=== PATIENT | female | born 1985 | race Caucasian/White ===

== ENCOUNTER → 2016-08-20 | Outpatient (CLI) | payer OTHER ==
[2014-11-14 18:00] VITALS: BP 117/73
[~2016-08-20] MED LIST: ACET325T9 PO; CIPR500T94 PO; HYDR-971 PO; IBUP800T19 PO; METR500T PO; PROM25TA10 PO
--- NOTE | 2016-08-20 15:53 | RAD ---
Examination: 2 views of the chest. History: History of cough for one week Comparison: 11/22/2014 Findings: The cardiomediastinal silhouette grossly appears unremarkable. Mild prominent appearing bibasal interstitial lung markings. Cholecystectomy clips are identified. Impression: Mild prominent appearing bibasal interstitial lung markings could be interstitial infiltrates or interstitial changes or bronchitis.
== END | disposition home or self-care (01) ==
LOC: DXRADRC 15:28
PROVIDERS: ATTEND Nurse Practitioner Family
DX: J18.9 Pneumonia, unspecified organism (principal); F17.210 Nicotine dependence, cigarettes, uncomplicated
CPT/HCPCS: 71020

== ENCOUNTER 2018-11-05 22:45 | Emergency (ER) | payer BC, OTHER ==
[~2018-11-05] VITALS: Ht 162.6 cm; Wt 73.9 kg
[~2018-11-05 22:45] MED LIST changes: +HYDR-3165 PO; -HYDR-971 PO
--- NOTE | 2018-11-05 22:54 | ED.ADGEN ---
Past History Past Medical History: GERD, GI Bleed, Migraines, Other Past Medical History Severe endometriosis Past Surgical History: Hysterectomy, Other Smoking: Cigarettes Alcohol Use: None Drug Use: None Adult General Chief Complaint Chief Complaint ".. I ve been vomiting up blood the last 5 days.. I just had a upper and lower GI at [facility] a couple months ago and they did not find anything... Dr. Pat did it...".. " I got that stupid insurance...where I can't go to [facility].. and end up having to be admitted or specialist in [facility]... " [facility] HPI Patient is a 33 year old female who presents with above hx and complaints vomiting blood 5 days. States previous evaluation and Lionel by Dr. Pat proximately 2 months ago consisting of an EGD and colonoscopy. No bleeding sites could be found. She states she does still have gastro-esophageal reflux and stomach complaints. No history of coagulopathy. No history immunosuppression. History of travel or specific ill contacts. Patient does continue to smoke. No history of bad food intake. Patient localizes her pain to epigastric area. Patient's had previous hysterectomy due to severe endometr iosis. Patient reportedly in premature menopause because of her severe endometriosis. Patient works as a hairdresser. No history exposure to new or unusual chemicals. Review of Systems Review of Systems Constitutional: Denies fever or chills [] Eyes: Denies change in visual acuity, redness, or eye pain [] HENT: Denies nasal congestion or sore throat [] Respiratory: Denies cough or shortness of breath [] Cardiovascular: No additional information not addressed in [facility] [] GI: Complaints as severe epigastric abdominal pain, nausea, vomiting, bloody stools and vomiting blood for 5 days : Denies dysuria or hematuria [] Musculoskeletal: Denies back pain or joint pain [] Integument: Denies rash or skin lesions [] Neurologic: Denies headache, focal weakness or sensory changes [] Endocrine: Denies polyuria or polydipsia [] All other systems were reviewed and found to be within normal limits, except as documented in this note. Family History Family History Noncontributory Current Medications Current Medications Current Medications Medications (Trade) Dose Ordered Sig/Joy Start Time Stop Time Status Last Admin Dose Admin Acetaminophen (Tylenol) 1,000 mg 1X ONCE 11/06/18 01:45 8/4/19 01:51 DC Famotidine (Pepcid Vial) 20 mg 1X ONCE 11/06/18 01:30 11/06/18 01:42 DC 11/06/18 01:41 20 MG Lactated Ringer's 1,000 ml @ 1,000 mls/hr Q1H 11/05/18 23:30 11/06/18 00:29 DC 11/05/18 23:37 1,000 MLS/HR Ondansetron HCl (Zofran) 8 mg 1X ONCE 11/06/18 01:30 11/06/18 01:42 DC 11/06/18 01:41 8 MG Allergies Allergies Allergies Coded Allergies Type Severity Reaction Last Updated Verified No Known Drug Allergies 06/28/14 No Physical Exam Physical Exam Constitutional: Moderately acute distress, non-toxic appearance. [] HENT: Normocephalic, atraumatic, bilateral external ears normal, oropharynx moist, no oral exudates, nose normal. [] Eyes: PERRLA, EOMI, conjunctiva normal, no discharge. [] Neck: Normal range of motion, no tenderness, supple, no stridor. [] Cardiovascular:Heart rate regular rhythm, no murmur [] Lungs & Thorax: Bilateral breath sounds equal apex with few scattered wheezes auscultation [] Abdomen: Bowel sounds normal, soft, gastric tenderness, no masses, no pulsatile masses. [] Rebound to epigastric. Old surgery scars. Rectal no gross blood noted Skin: Warm, dry, no erythema, no rash. [] Back: No tenderness, no CVA tenderness. [] Extremities: No tenderness, no cyanosis, no clubbing, ROM intact, no edema. [] Has abrasions on index and third finger dorsal. No psoas sign Neurologic: Alert and oriented X 3, normal motor function, normal sensory function, no focal deficits noted. [] Psychologic: Affect anxious, judgement normal, mood depressed. Current Patient Data Vital Signs Vital Signs Date Time Temp Pulse Resp B/P (MAP) Pulse Ox O2 Delivery O2 Flow Rate FiO2 11/05/18 23:11 98.0 71 18 96 Room Air Lab Results Laboratory Tests Test 11/05/18 22:50 11/05/18 23:00 Urine Collection Type Unknown Urine Color Straw Urine Clarity Clear Urine pH 6.0 Urine Specific Bromide 1.010 Urine Protein Neg (NEG-TRACE) Urine Glucose (UA) Neg mg/dL (NEG) Urine Ketones (Stick) Neg mg/dL (NEG) Urine Blood Neg (NEG) Urine Nitrite Neg (NEG) Urine Bilirubin Neg (NEG) Urine Urobilinogen Dipstick 0.2 mg/dL (0.2 mg/dL) Urine Leukocyte Esterase Neg (NEG) Urine RBC 0 /HPF (0-2) Urine WBC Occ /HPF (0-4) Urine Squamous Epithelial Cells Occ /LPF Urine Bacteria 0 /HPF (0-FEW) Urine Test Negative (NEG) Urine Opiates Screen Neg (NEG) Urine Methadone Screen Neg (NEG) Urine Barbiturates Neg (NEG) Urine Phencyclidine Screen Neg (NEG) Urine Amphetamine/Methamphetamine Neg (NEG) Urine Benzodiazepines Screen Neg (NEG) Urine Cocaine Screen Neg (NEG) Urine Cannabinoids Screen Neg (NEG) Urine Ethyl Alcohol Neg (NEG) White Blood Count 12.3 x10^3/uL (4.0-11.0) H Red Blood Count 4.53 x10^6/uL (3.50-5.40) Hemoglobin 13.5 g/dL (12.0-15.5) Hematocrit 40.7 % (36.0-47.0) Mean Corpuscular Volume 90 fL (79-100) Mean Corpuscular Hemoglobin 30 pg (25-35) Mean Corpuscular Hemoglobin Concent 33 g/dL (31-37) Red Cell Distribution Width 13.2 % (11.5-14.5) Platelet Count 254 x10^3/uL (140-400) Neutrophils (%) (Auto) 62 % (31-73) Lymphocytes (%) (Auto) 29 % (24-48) Monocytes (%) (Auto) 6 % (0-9) Eosinophils (%) (Auto) 1 % (0-3) Basophils (%) (Auto) 1 % (0-3) Neutrophils # (Auto) 7.6 x10^3uL (1.8-7.7) Lymphocytes # (Auto) 3.6 x10^3/uL (1.0-4.8) Monocytes # (Auto) 0.8 x10^3/uL (0.0-1.1) Eosinophils # (Auto) 0.1 x10^3/uL (0.0-0.7) Basophils # (Auto) 0.1 x10^3/uL (0.0-0.2) Prothrombin Time 9.9 SEC (9.4-11.4) Prothrombin Time INR 1.0 (0.9-1.1) PTT 27 SEC (23-33) Sodium Level 140 mmol/L (136-145) Potassium Level 3.6 mmol/L (3.5-5.1) Chloride Level 105 mmol/L (98-107) Carbon Dioxide Level 26 mmol/L (21-32) Anion Gap 9 (6-14) Blood Urea Nitrogen 11 mg/dL (7-20) Creatinine 0.6 mg/dL (0.6-1.0) Estimated GFR (Cockcroft-Gault) 115.9 Glucose Level 96 mg/dL (70-99) Calcium Level 8.8 mg/dL (8.5-10.1) Total Bilirubin 0.2 mg/dL (0.2-1.0) Direct Bilirubin < 0.1 mg/dL (0.0-0.2) Aspartate Amino Transferase (AST) 12 U/L (15-37) L Alanine Aminotransferase (ALT) 26 U/L (14-59) Alkaline Phosphatase 74 U/L (46-116) Total Protein 7.3 g/dL (6.4-8.2) Albumin 4.1 g/dL (3.4-5.0) Amylase Level 40 U/L (25-115) Lipase 201 U/L (73-393) EKG EKG [] Radiology/Procedures Radiology/Procedures My interpretation abdomen film shows old surgical clips. No free air in the diaphragm. No acute cardiopulmonary findings. See formal report when available[] Course & Med Decision Making Course & Med Decision Making Pertinent Labs and Imaging studies reviewed. (See chart for details) Patient to remain on a clear fluid diet only. No milk or solids. Must allow eleni l rest for 2 days. Take Tylenol for pain. No NSAIDs. No caffeine. No alcohol. Stop smoking. Takes Zantac 300 mg twice a day. Take Zofran for nausea and vomiting. Return if any concerns. Must follow-up. Recommended also follow up [employer] reference premature menopause. Patient recommended to get a primary care physician. No tarry stools noted during ED stay or episodes of vomiting blood. Patient declined NG placement. [] Final Impression Final Impression 1. GERD 2. Hx Recurrent GI bleeding - no source found 3. Hx Gastritis[] 4. Endometriosis 5. Hysterectomy secondary to endometriosis- reportedly premature menopause Dragon Disclaimer Dragon Disclaimer This electronic medical record was generated, in whole or in part, using a voice recognition dictation system. Discharge Summary Visit Information Final Diagnosis Problems Medical Problems: (1) Gastritis and duodenitis Status: Acute (2) Nausea & vomiting Status: Acute (3) Pain in the abdomen Status: Acute Brief Hospital Course Allergies Allergies Coded Allergies Type Severity Reaction Last Updated Verified No Known Drug Allergies 06/28/14 No Vital Signs Vital Signs Date Time Temp Pulse Resp B/P (MAP) Pulse Ox O2 Delivery O2 Flow Rate FiO2 11/05/18 23:11 98.0 71 18 96 Room Air Lab Results Laboratory Tests Test 11/05/18 22:50 11/05/18 23:00 Urine Collection Type Unknown Urine Color Straw Urine Clarity Clear Urine pH 6.0 Urine Specific Bromide 1.010 Urine Protein Neg (NEG-TRACE) Urine Glucose (UA) Neg mg/dL (NEG) Urine Ketones (Stick) Neg mg/dL (NEG) Urine Blood Neg (NEG) Urine Nitrite Neg (NEG) Urine Bilirubin Neg (NEG) Urine Urobilinogen Dipstick 0.2 mg/dL (0.2 mg/dL) Urine Leukocyte Esterase Neg (NEG) Urine RBC 0 /HPF (0-2) Urine WBC Occ /HPF (0-4) Urine Squamous Epithelial Cells Occ /LPF Urine Bacteria 0 /HPF (0-FEW) Urine Test Negative (NEG) Urine Opiates Screen Neg (NEG) Urine Methadone Screen Neg (NEG) Urine Barbiturates Neg (NEG) Urine Phencyclidine Screen Neg (NEG) Urine Amphetamine/Methamphetamine Neg (NEG) Urine Benzodiazepines Screen Neg (NEG) Urine Cocaine Screen Neg (NEG) Urine Cannabinoids Screen Neg (NEG) Urine Ethyl Alcohol Neg (NEG) White Blood Count 12.3 x10^3/uL (4.0-11.0) Red Blood Count 4.53 x10^6/uL (3.50-5.40) Hemoglobin 13.5 g/dL (12.0-15.5) Hematocrit 40.7 % (36.0-47.0) Mean Corpuscular Volume 90 fL (79-100) Mean Corpuscular Hemoglobin 30 pg (25-35) Mean Corpuscular Hemoglobin Concent 33 g/dL (31-37) Red Cell Distribution Width 13.2 % (11.5-14.5) Platelet Count 254 x10^3/uL (140-400) Neutrophils (%) (Auto) 62 % (31-73) Lymphocytes (%) (Auto) 29 % (24-48) Monocytes (%) (Auto) 6 % (0-9) Eosinophils (%) (Auto) 1 % (0-3) Basophils (%) (Auto) 1 % (0-3) Neutrophils # (Auto) 7.6 x10^3uL (1.8-7.7) Lymphocytes # (Auto) 3.6 x10^3/uL (1.0-4.8) Monocytes # (Auto) 0.8 x10^3/uL (0.0-1.1) Eosinophils # (Auto) 0.1 x10^3/uL (0.0-0.7) Basophils # (Auto) 0.1 x10^3/uL (0.0-0.2) Prothrombin Time 9.9 SEC (9.4-11.4) Prothromb Time International Ratio 1.0 (0.9-1.1) Activated Partial Thromboplast Time 27 SEC (23-33) Sodium Level 140 mmol/L (136-145) Potassium Level 3.6 mmol/L (3.5-5.1) Chloride Level 105 mmol/L (98-107) Carbon Dioxide Level 26 mmol/L (21-32) Anion Gap 9 (6-14) Blood Urea Nitrogen 11 mg/dL (7-20) Creatinine 0.6 mg/dL (0.6-1.0) Estimated GFR (Cockcroft-Gault) 115.9 Glucose Level 96 mg/dL (70-99) Calcium Level 8.8 mg/dL (8.5-10.1) Total Bilirubin 0.2 mg/dL (0.2-1.0) Direct Bilirubin < 0.1 mg/dL (0.0-0.2) Aspartate Amino Transf (AST/SGOT) 12 U/L (15-37) Alanine Aminotransferase (ALT/SGPT) 26 U/L (14-59) Alkaline Phosphatase 74 U/L (46-116) Total Protein 7.3 g/dL (6.4-8.2) Albumin 4.1 g/dL (3.4-5.0) Amylase Level 40 U/L (25-115) Lipase 201 U/L (73-393) Brief Hospital Course Ms. Dominguez is a 33 old female who presented with history of vomiting blood for the last 5 days. Vitals and labs. Appear to Be stable. Prior EGD and colonoscopy reportedly negative. Patient follow-up primary care and GI Discharge Information Condition at Discharge: Improved, Stable Disposition/Orders: D/C to Home Dischare Medications Current Medications Lactated Ringer's 1,000 ml @ 1,000 mls/hr Q1H IV Last administered on 11/05/18at 23:37; Admin Dose 1,000 MLS/HR; Start 11/05/18 at 23:30; Stop 11/06/18 at 00:29; Status DC Ondansetron HCl (Zofran) 8 mg 1X ONCE IV Last administered on 11/05/18at 23:37; Admin Dose 8 MG; Start 11/05/18 at 23:30; Stop 11/05/18 at 23:31; Status DC Famotidine (Pepcid Vial) 20 mg 1X ONCE IVP Last administered on 11/05/18at 23:37; Admin Dose 20 MG; Start 11/05/18 at 23:30; Stop 11/05/18 at 23:31; Status DC Ondansetron HCl (Zofran) 8 mg 1X ONCE IV Last administered on 11/06/18at 01:41; Admin Dose 8 MG; Start 11/06/18 at 01:30; Stop 11/06/18 at 01:42; Status DC Famotidine (Pepcid Vial) 20 mg 1X ONCE IVP Last administered on 11/06/18at 01:41; Admin Dose 20 MG; Start 11/06/18 at 01:30; Stop 11/06/18 at 01:42; Status DC Acetaminophen (Tylenol) 1,000 mg 1X ONCE PO ; Start 11/06/18 at 01:45; Stop 11/06/18 at 01:51; Status DC Active Scripts Active Zofran (Ondansetron Hcl) 8 Mg Tablet 8 Mg PO QIDPRN PRN Zantac (Ranitidine Hcl) 300 Mg Tablet 300 Mg PO BID 90 Days Promethazine Hcl 25 Mg Tablet 1 Tab PO PRN Q6HRS [place] 5-325 Tablet (Hydrocodone Bit/Acetaminophen) 1 Each Tablet 1 Tab PO PRN Q6HRS PRN Flagyl (Metronidazole) 500 Mg Tablet 1 Tab PO BID Cipro (Ciprofloxacin Hcl) 500 Mg Tablet 1 Tab PO BID Dragon Disclaimer This chart was dictated in whole or in part using Voice Recognition software in a busy, high-work load, and often noisy Emergency Department environment. It may contain unintended and wholly unrecognized errors or omissions. MAGGIE CENTENO MD Nov 05, 2018 22:54
[2018-11-05 23:11] VITALS: BP 132/92
[2018-11-05 23:25] LABS: BASO # 0.1 x10^3/uL (0.0-0.2); BASO % 1 % (0-3); EOS # 0.1 x10^3/uL (0.0-0.7); EOS % 1 % (0-3); HEMATOCRIT 40.7 % (36.0-47.0); HEMOGLOBIN 13.5 g/dL (12.0-15.5); LYMPH # 3.6 x10^3/uL (1.0-4.8); LYMPH % 29 % (24-48); MEAN CORPUSCULAR HEMOGLOBIN 30 pg (25-35); MEAN CORPUSCULAR HGB CONC 33 g/dL (31-37); MEAN CORPUSCULAR VOLUME 90 fL (79-100); MONO # 0.8 x10^3/uL (0.0-1.1); MONO % 6 % (0-9); NEUT # 7.6 x10^3uL (1.8-7.7); NEUT % 62 % (31-73); PLATELET COUNT 254 x10^3/uL (140-400); RED BLOOD COUNT 4.53 x10^6/uL (3.50-5.40); RED CELL DISTRIBUTION WIDTH 13.2 % (11.5-14.5); WHITE BLOOD COUNT 12.3 x10^3/uL (4.0-11.0)
[2018-11-05] MEDS ORDERED: IV RINGERS SOLUTION,LACTATED 1,000 ML IV SCH (23:30)
[2018-11-05] MEDS ORDERED: FAMOTIDINE 20 MG/2 ML VIAL IVP ONE (23:30)
[2018-11-05] MEDS ORDERED: ONDANSETRON PF 4 MG/2 ML VIAL. IV ONE (23:30)
[2018-11-05 23:34] LABS: BARBITURATES NEG (NEG); BENZODIAZEPINES NEG (NEG); CANNABINOIDS NEG (NEG); COCAINE NEG (NEG); METHADONE NEG (NEG); OPIATES NEG (NEG); PHENCYCLIDINE NEG (NEG)
[2018-11-05 23:36] LABS: AMPHETAMINE/METHAMPHETAMINE NEG (NEG)
[2018-11-05 23:37] LABS: BACTERIA,URINE 0 /HPF (0-FEW); BILIRUBIN,URINE NEG (NEG); CLARITY,URINE CLEAR; COLOR,URINE STRAW; GLUCOSE,URINE NEG (NEG); NITRITE,URINE NEG (NEG); RBC,URINE 0 /HPF (0-2); SQUAMOUS EPITHELIAL CELL,UR OCC /LPF; UROBILINOGEN,URINE 0.2 mg/dL (0.2 mg/dL)
[2018-11-05 23:38] LABS: U PREG PATIENT NEGATIVE (NEG); WBC,URINE OCC /HPF (0-4)
[2018-11-05 23:43] LABS: ALBUMIN 4.1 g/dL (3.4-5.0); ALK PHOS 74 U/L (46-116); ALT (SGPT) 26 U/L (14-59); AMYLASE 40 U/L (25-115); ANION GAP 9 (6-14); AST (SGOT) 12 U/L (15-37); BLOOD UREA NITROGEN 11 mg/dL (7-20); CALCIUM 8.8 mg/dL (8.5-10.1); CARBON DIOXIDE 26 mmol/L (21-32); CHLORIDE 105 mmol/L (98-107); CREATININE 0.6 mg/dL (0.6-1.0); DIRECT BILIRUBIN < 0.1 mg/dL (0.0-0.2); GFR 115.9; GLUCOSE 96 mg/dL (70-99); LIPASE 201 U/L (73-393); POTASSIUM 3.6 mmol/L (3.5-5.1); SODIUM 140 mmol/L (136-145); TOTAL BILIRUBIN 0.2 mg/dL (0.2-1.0); TOTAL PROTEIN 7.3 g/dL (6.4-8.2)
[2018-11-06] MEDS ORDERED: FAMOTIDINE 20 MG/2 ML VIAL IVP ONE (01:30)
[2018-11-06] MEDS ORDERED: ONDANSETRON PF 4 MG/2 ML VIAL. IV ONE (01:30)
[2018-11-06] MEDS ORDERED: RANI300T3 PO (01:37)
[2018-11-06] MEDS ORDERED: ONDA8TAB9 PO (01:37)
[2018-11-06] MEDS ORDERED: ACETAMINOPHEN 500 MG TABLET PO ONE (01:45)
--- NOTE | 2018-11-06 08:00 | RAD ---
Acute Abdominal Series: 11/05/2018 10:55 PM Reason for study: Right-sided abdominal pain recent endoscopy and colonoscopy.. Comparison studies: None. Technique: Frontal view of the chest was obtained along with supine and upright views of the abdomen. Findings: Nonobstructive bowel gas pattern. No air fluid levels or free air. Cholecystectomy changes identified. Phleboliths are identified within the pelvis. No definite calculus along the genitourinary tract. The lungs are clear without acute consolidative opacity. No pleural effusion or pneumothorax. The cardiac and mediastinal contours are normal. Visualized osseous structures are intact. IMPRESSION: 1. Nonobstructive bowel gas pattern. 2. No acute cardiopulmonary findings. Electronically signed by: Larissa Foster MD (11/06/2018 7:57 AM) [facility]
== END 2018-11-06 01:48 | disposition home or self-care (01) ==
LOC: ER 22:45
DX: K21.9 Gastro-esophageal reflux disease without esophagitis (principal); N80.9 Endometriosis, unspecified; K29.70 Gastritis, unspecified, without bleeding; K29.80 Duodenitis without bleeding; G43.909 Migraine, unspecified, not intractable, without status migrainosus; F17.210 Nicotine dependence, cigarettes, uncomplicated; Z90.710 Acquired absence of both cervix and uterus
CPT/HCPCS: 36415; 74022; 80048; 80076; 80307; 81001; 81025; 82150; 83690; 85025; 85610; 85730; 96361; 96374; 96375; 96376; 99285; J2405; J3490; J7120; 82274

== ENCOUNTER 2019-06-11 06:32 | Emergency (ER) | payer OTHER ==
[~2019-06-11] VITALS: Ht 162.6 cm; Wt 72.7 kg
[2019-06-11 06:32] VITALS: BP 128/96
[~2019-06-11 06:32] MED LIST changes: +ONDA8TAB9 PO; +RANI300T3 PO
[2019-06-11] MEDS ORDERED: ONDA4TAB7 PO (06:56)
[2019-06-11] MEDS ORDERED: diphenhydrAMINE 50 MG/ML VIAL IVP ONE (07:00)
[2019-06-11] MEDS ORDERED: IV NORMAL SALINE 1,000ML 1,000 ML IV ONE (07:00)
[2019-06-11] MEDS ORDERED: METOCLOPRAMIDE HCL 10 MG/2 ML VIAL. IVP ONE (07:00)
[2019-06-11] MEDS ORDERED: PROCHLORPERAZINE 10 MG/2 ML VIAL. IV ONE (07:00)
--- NOTE | 2019-06-11 12:26 | PHYS DOC ---
Past History Past Medical History: No Pertinent History Past Surgical History: No Surgical History Alcohol Use: None Adult General Chief Complaint Chief Complaint: DENTAL PROBLEM HPI HPI Patient is a 34-year-old female with history of migraine headaches who presents with typical migraine headache. Headache is left-sided retro-orbital and associated with light sensitivity nausea and vomiting. Symptoms began 2 days ago after dental work. Patient has been unable to keep pain medications down due to nausea and vomiting. Denies dizziness lightheadedness. Unable to sleep secondary to symptoms. Reports residual dental pain due to crown work. [] Review of Systems Review of Systems Review of symptoms as per HPI. All other review of symptoms are negative. All other systems were reviewed and found to be within normal limits, except as documented in this note. Current Medications Current Medications Current Medications Medications (Trade) Dose Ordered Sig/Joy Start Time Stop Time Status Last Admin Dose Admin Diphenhydramine HCl (Benadryl) 50 mg 1X ONCE 06/11/19 07:00 06/11/19 07:01 DC 06/11/19 07:18 50 MG Metoclopramide HCl (Reglan Vial) 10 mg 1X ONCE 06/11/19 07:00 06/11/19 07:01 DC 06/11/19 07:18 10 MG Prochlorperazine Edisylate (Compazine) 10 mg 1X ONCE 06/11/19 07:00 06/11/19 07:01 DC 06/11/19 07:18 10 MG Sodium Chloride 1,000 ml @ 1,000 mls/hr 1X ONCE 06/11/19 07:00 06/11/19 07:59 DC 06/11/19 07:16 1,000 MLS/HR Allergies Allergies Allergies Coded Allergies Type Severity Reaction Last Updated Verified No Known Drug Allergies 06/11/19 No Physical Exam Physical Exam Constitutional: Well developed, well nourished, no acute distress, non-toxic appearance. [] HENT: Normocephalic, atraumatic, bilateral external ears normal, oropharynx moist, no oral exudates, nose normal. [] Eyes: PERRLA, EOMI, conjunctiva normal, no discharge. [] Neck: Normal range of motion, no tenderness, supple, no stridor. [] Cardiovascular:Heart rate regular rhythm, no murmur [] Lungs & Thorax: Bilateral breath sounds clear to auscultation [] Neurologic: Alert and oriented X 3, normal motor function, normal sensory function, no focal deficits noted. [] Psychologic: Affect normal, judgement normal, mood normal. [] Current Patient Data Vital Signs Vital Signs Date Time Temp Pulse Resp B/P (MAP) Pulse Ox O2 Delivery O2 Flow Rate FiO2 06/11/19 06:32 97.6 75 20 128/96 (107) 98 Room Air EKG EKG [] Radiology/Procedures Radiology/Procedures [] Course & Med Decision Making Course & Med Decision Making Pertinent Labs and Imaging studies reviewed. (See chart for details) [Typical migraine headache. Symptoms improved with treatment.] Dragon Disclaimer Dragon Disclaimer This electronic medical record was generated, in whole or in part, using a voice recognition dictation system. Departure Departure: Impression: Primary Impression: Migraine Disposition: HOME, SELF-CARE Condition: STABLE Referrals: PCP,NO (PCP) PCP,UNKNOWN Patient Instructions: Migraine Headache, [id number] Additional Instructions: Please take nausea medication as needed for additional relief. Follow-up with your dentist as soon as possible. Scripts Ondansetron Hcl (ZOFRAN) 4 Mg Tablet 1 TAB PO Q6HRS, #10 TAB Prov: DANIELE PATTON DO 06/11/19 DANIELE PATTON DO Jun 11, 2019 12:26
== END 2019-06-11 08:28 | disposition home or self-care (01) ==
LOC: MERGE 06:32 → ER 06:32
DX: G43.909 Migraine, unspecified, not intractable, without status migrainosus (principal); R11.2 Nausea with vomiting, unspecified; K08.89 Other specified disorders of teeth and supporting structures
CPT/HCPCS: 96361; 96374; 96375; 99284; J0780; J1200; J2765; J7030

== ENCOUNTER 2020-01-16 10:39 | Emergency (ER) | payer OTHER ==
[~2020-01-16] VITALS: Ht 162.6 cm; Wt 68.8 kg
[~2020-01-16 10:39] MED LIST changes: +ONDA4TAB7 PO
[2020-01-16] MEDS ORDERED: ONDANSETRON PF 4 MG/2 ML VIAL. IVP ONE ×2 (11:15→14:15)
[2020-01-16] MEDS ORDERED: IV NORMAL SALINE 1,000ML 1,000 ML IV ONE ×2 (11:15→13:00)
[2020-01-16] MEDS ORDERED: KETOROLAC 15 MG/ML VIAL. IVP ONE (11:15)
[2020-01-16] MEDS ORDERED: FAMOTIDINE 20 MG/2 ML VIAL IVP ONE (11:15)
[2020-01-16 11:28] LABS: BASO % 0 % (0-3); CALCIUM 9.9 mg/dL (8.5-10.1); EOS # 0.1 x10^3/uL (0.0-0.7); EOS % 1 % (0-3); GFR 63.9; HEMATOCRIT 49.4 % (36.0-47.0); HEMOGLOBIN 15.9 g/dL (12.0-15.5); LYMPH # 2.6 x10^3/uL (1.0-4.8); LYMPH % 25 % (24-48); MEAN CORPUSCULAR HEMOGLOBIN 29 pg (25-35); MEAN CORPUSCULAR HGB CONC 32 g/dL (31-37); MEAN CORPUSCULAR VOLUME 90 fL (79-100); MONO # 0.9 x10^3/uL (0.0-1.1); MONO % 8 % (0-9); NEUT # 6.8 x10^3uL (1.8-7.7); NEUT % 65 % (31-73); PLATELET COUNT 283 x10^3/uL (140-400); POTASSIUM 3.1 mmol/L (3.5-5.1); RED BLOOD COUNT 5.49 x10^6/uL (3.50-5.40); RED CELL DISTRIBUTION WIDTH 13.5 % (11.5-14.5); WHITE BLOOD COUNT 10.4 x10^3/uL (4.0-11.0)
[2020-01-16 11:34] LABS: ALBUMIN 4.8 g/dL (3.4-5.0); ALBUMIN/GLOBULIN RATIO 1.3 (1.0-1.7); MAGNESIUM 2.2 mg/dL (1.8-2.4); TOTAL BILIRUBIN 0.4 mg/dL (0.2-1.0); TOTAL PROTEIN 8.5 g/dL (6.4-8.2)
--- NOTE | 2020-01-16 11:52 | PHYS DOC ---
Past History Past Medical History: Gallstones, GERD, P.U.D Past Medical History Anal fissures, ?crohns Past Surgical History: Cholecystectomy, Hysterectomy Smoking: Cigarettes Alcohol Use: None Drug Use: None General Adult EDM: Chief Complaint: ABDOMINAL PAIN HPI: HPI: Patient is a 34 year old F with PSHx of cholecystectomy who presents with waxing and waning epigastric pain, nausea, vomitting, diarrhea for the last 3 days. Pain is referred to the left flank/shoulder blade. Has not been able to keep and liquids or solids down since symptoms started on Wednesday. She has a hx of GERD and gastric ulcers, but claims that this pain is more severe and has persisted longer than the symptoms she associates with her reflux/ulcers. She took oral zofran at home which has not helped her nasuea. She also reports some cold sweats but no fevers. Denies any recent sick contacts with similar sx. States that she ate kosovan food on Sat before sx started, but others who ate the same food did not have any symptoms. She also reports polyuria, but denies dysuria or hematuria. Also reports some light red tinge to her diarrhea, but is unsure if this is related to recent straining and her anal fissures. She denies hematemsis, CP, SOA. Review of Systems: Review of Systems: Constitutional: Reports cold sweats, Denies fevers Eyes: Denies redness or eye pain HENT: Denies nasal congestion or sore throat Respiratory: Denies cough or shortness of breath Cardiovascular: Denies chest pain or palpitations GI: Reports nausea, vomitting, diarrhea with light red tinge, Denies hematemasis : Reports Polyuria, Denies dysuria or hematuria Musculoskeletal: Reports L flank/shoulder blade pain, Denies joint pain Integument: Denies rash or skin lesions Neurologic: Reports lightheadedness, Denies CHRISTINE, focal weakness or sensory changes Complete systems were reviewed and found to be within normal limits, except as documented in this note. Family History: Family History: Kidney disease and stones in father Current Medications: Current Meds: Current Medications Medications (Trade) Dose Ordered Sig/Joy Start Time Stop Time Status Last Admin Dose Admin Famotidine (Pepcid Vial) 20 mg 1X ONCE 01/16/20 11:15 01/16/20 11:16 DC 01/16/20 11:27 20 MG Ketorolac Tromethamine (Toradol 15mg Vial) 15 mg 1X ONCE 01/16/20 11:15 01/16/20 11:16 DC 01/16/20 11:27 15 MG Ondansetron HCl (Zofran) 4 mg 1X ONCE 01/16/20 11:15 01/16/20 11:16 DC 01/16/20 11:26 4 MG Sodium Chloride 1,000 ml @ 1,000 mls/hr 1X ONCE 01/16/20 11:15 01/16/20 12:14 01/16/20 11:26 1,000 MLS/HR Allergies: Allergies: Allergies Coded Allergies Type Severity Reaction Last Updated Verified No Known Drug Allergies 06/28/14 No Physical Exam: PE: Constitutional: Well developed, well nourished, occasionally wincing in pain, non-toxic appearance HENT: Normocephalic, atraumatic Eyes: PERRL, EOMI, conjunctiva normal, no discharge Neck: Normal range of motion, no tenderness, supple Lungs & Thorax: No respiratory distress, equal chest rise and fall Abdomen: Soft, nondistended, nongaurded, epigastric pain with deep palpation. Skin: Warm, dry, no erythema, no rash Back: Mild left sided CVA tenderness Extremities: No tenderness, ROM intact, no edema Neurologic: Alert and oriented X 3, normal motor function, normal sensory function, no focal deficits noted Psychologic: Affect normal, judgment normal Current Patient Data: Labs: Laboratory Tests Test 01/16/20 11:00 White Blood Count 10.4 x10^3/uL (4.0-11.0) Red Blood Count 5.49 x10^6/uL (3.50-5.40) H Hemoglobin 15.9 g/dL (12.0-15.5) H Hematocrit 49.4 % (36.0-47.0) H Mean Corpuscular Volume 90 fL (79-100) Mean Corpuscular Hemoglobin 29 pg (25-35) Mean Corpuscular Hemoglobin Concent 32 g/dL (31-37) Red Cell Distribution Width 13.5 % (11.5-14.5) Platelet Count 283 x10^3/uL (140-400) Neutrophils (%) (Auto) 65 % (31-73) Lymphocytes (%) (Auto) 25 % (24-48) Monocytes (%) (Auto) 8 % (0-9) Eosinophils (%) (Auto) 1 % (0-3) Basophils (%) (Auto) 0 % (0-3) Neutrophils # (Auto) 6.8 x10^3uL (1.8-7.7) Lymphocytes # (Auto) 2.6 x10^3/uL (1.0-4.8) Monocytes # (Auto) 0.9 x10^3/uL (0.0-1.1) Eosinophils # (Auto) 0.1 x10^3/uL (0.0-0.7) Basophils # (Auto) 0.0 x10^3/uL (0.0-0.2) Sodium Level 137 mmol/L (136-145) Potassium Level 3.1 mmol/L (3.5-5.1) L Chloride Level 98 mmol/L (98-107) Carbon Dioxide Level 25 mmol/L (21-32) Anion Gap 14 (6-14) Blood Urea Nitrogen 7 mg/dL (7-20) Creatinine 1.0 mg/dL (0.6-1.0) Estimated GFR (Cockcroft-Gault) 63.9 BUN/Creatinine Ratio 7 (6-20) Glucose Level 67 mg/dL (70-99) L Calcium Level 9.9 mg/dL (8.5-10.1) Magnesium Level Pending Total Bilirubin Pending Aspartate Amino Transferase (AST) Pending Alanine Aminotransferase (ALT) Pending Alkaline Phosphatase Pending Total Protein Pending Albumin Pending Albumin/Globulin Ratio Pending Lipase Pending Vital Signs: Vital Signs Date Time Temp Pulse Resp B/P (MAP) Pulse Ox O2 Delivery O2 Flow Rate FiO2 01/16/20 10:45 98.3 103 20 137/95 (109) 97 Room Air EKG: EKG: [] Radiology/Procedures: Radiology/Procedures: PROCEDURE: CT ABDOMEN PELVIS WO CONTRAST CT Abdomen and Pelvis without contrast History: Left flank pain Technique: Noncontrast CT imaging was performed of the abdomen and pelvis. Multiplanar images are reviewed. Exposure: One or more of the following individualized dose reduction techniques were utilized for this examination: 1. Automated exposure control 2. Adjustment of the mA and/or kV according to patient size 3. Use of iterative reconstruction technique. Comparison: August 12, 2007 Findings: There is no hydronephrosis of either kidney. No renal calculus is identified on either side. There is a small 2 mm calculus in the right pelvis image 120 series 2 near or potentially in the nondilated distal right ureter. No left ureteral calculus is identified. 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 Accurate evaluation of abdominal visceral organs is limited without intravenous contrast. There is no obvious abnormality of the spleen, liver, or pancreas. There has been interval cholecystectomy. There is no adrenal nodularity. Accurate evaluation of bowel is limited without oral contrast. There is no significant free air, free fluid, bowel dilatation. Normal caliber appendix is visualized without adjacent inflammatory change. There has been interval hysterectomy. What may represent the inferior aspect of the left gonadal vein in the left pelvis such as seen in images 112 through 119 appears dilated, adjacent mild hazy and strandy change of the adjacent fat. More superiorly, left gonadal vein does not appear dilated There is somewhat reticular density of the mesenteric fat in the pelvis although present previously. There are phleboliths in the pelvis bilaterally. Urinary bladder is slightly distended. Impression: 1. There is no hydronephrosis or renal calculus. There is a small 2 mm calcification the right pelvis which is near or in the nondilated right ureter. 2. There is some similar nonspecific reticular density of the pelvic mesenteric fat. There has been interval hysterectomy. There is dilatation of likely inferior aspect of the left gonadal vein in the pelvis with adjacent mild hazy change of the fat, could be related to underlying thrombosis, not dilated more superiorly. 3. There is no CT evidence of acute appendicitis. 4. 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 Electronically signed by: Thang Esposito MD (01/16/2020 12:21 PM) [id number] Course & Med Decision Making: Course & Med Decision Making Pertinent Labs and Imaging studies reviewed. (See chart for details) Patient presented to the ED with 3 days of epigastric pain, nausea, vomiting, and diarrhea. She has been unable to keep any liquids or solids down due to n/v/d. Fluids were started, and pain and nausea were controlled. Basic labs, electrolytes, and abdominal labs were ordered. With the epigastric pain radiati ng to the left flank/shoulder blade, family history of kidney stones in her father, and the patients report of polyuria, non-con CT abd was ordered to rule out kidney stone vs pyelonephritis vs gastroenteritis. R sided 2 cm stone in the renal pelvis was seen on CT, but is unlikely to account for her epigastric and left sided flank pain. 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 UA was negative for infectious process. Patients symptoms were well enough controlled to be treated symptomatically as an outpatient. Patient stable for discharge with outpatient follow-up with PCP. Discussed findings and plan with patient, who acknowledges understanding and agreement. Markus Disclaimer: Markus Disclaimer: This electronic medical record was generated, in whole or in part, using a voice recognition dictation system. Departure Departure: Impression: Primary Impression: Nausea vomiting and diarrhea Additional Impressions: Abnormal finding on CT scan Hypokalemia Disposition: 01 DC HOME SELF CARE/HOMELESS Condition: STABLE Referrals: GINNA CEJA (PCP) Patient Instructions: Clear Liquid Diet, [id number], Diarrhea, [id number], Diet for Diarrhea, Adult, Hypokalemia, Incidental Abdominal Radiological Finding, Potassium Content of Foods, Viral Gastroenteritis, [id number] Scripts Famotidine (PEPCID) 20 Mg Tablet 1 TAB PO BID for Gastritis, #30 TAB Prov: BRADY FORREST DO 01/16/20 Hydrocodone Bit/Acetaminophen (NORCO 5-325 TABLET) 1 Each Tablet 0.5-1 TAB PO Q6HRS PRN for PAIN, #10 TAB Prov: BRADY FORREST DO 01/16/20 Ondansetron (ONDANSETRON ODT) 4 Mg Tab.rapdis 1 TAB PO PRN Q6-8HRS PRN for NAUSEA, #16 TAB Prov: BRADY FORREST DO 01/16/20 BRADY FORREST DO Jan 16, 2020 11:52
--- NOTE | 2020-01-16 12:24 | RAD ---
CT Abdomen and Pelvis without contrast History: Left flank pain Technique: Noncontrast CT imaging was performed of the abdomen and pelvis. Multiplanar images are reviewed. Exposure: One or more of the following individualized dose reduction techniques were utilized for this examination: 1. Automated exposure control 2. Adjustment of the mA and/or kV according to patient size 3. Use of iterative reconstruction technique. Comparison: August 12, 2007 Findings: There is no hydronephrosis of either kidney. No renal calculus is identified on either side. There is a small 2 mm calculus in the right pelvis image 120 series 2 near or potentially in the nondilated distal right ureter. No left ureteral calculus is identified. 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 Accurate evaluation of abdominal visceral organs is limited without intravenous contrast. There is no obvious abnormality of the spleen, liver, or pancreas. There has been interval cholecystectomy. There is no adrenal nodularity. Accurate evaluation of bowel is limited without oral contrast. There is no significant free air, free fluid, bowel dilatation. Normal caliber appendix is visualized without adjacent inflammatory change. There has been interval hysterectomy. What may represent the inferior aspect of the left gonadal vein in the left pelvis such as seen in images 112 through 119 appears dilated, adjacent mild hazy and strandy change of the adjacent fat. More superiorly, left gonadal vein does not appear dilated There is somewhat reticular density of the mesenteric fat in the pelvis although present previously. There are phleboliths in the pelvis bilaterally. Urinary bladder is slightly distended. Impression: 1. There is no hydronephrosis or renal calculus. There is a small 2 mm calcification the right pelvis which is near or in the nondilated right ureter. 2. There is some similar nonspecific reticular density of the pelvic mesenteric fat. There has been interval hysterectomy. There is dilatation of likely inferior aspect of the left gonadal vein in the pelvis with adjacent mild hazy change of the fat, could be related to underlying thrombosis, not dilated more superiorly. 3. There is no CT evidence of acute appendicitis. 4. 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 Electronically signed by: Thang Esposito MD (01/16/2020 12:21 PM) [id number]
[2020-01-16] MEDS ORDERED: MORPHINE SULFATE 4 MG/ML DISP.SYRIN. ONE (13:21)
[2020-01-16] MEDS ORDERED: MORPHINE SULFATE 4 MG/ML DISP.SYRIN. IV ONE (13:30)
[2020-01-16 13:48] LABS: BACTERIA,URINE 0 /HPF (0-FEW); BILIRUBIN,URINE NEG (NEG); CLARITY,URINE CLEAR; COLOR,URINE YELLOW; GLUCOSE,URINE NEG (NEG); NITRITE,URINE NEG (NEG); RBC,URINE RARE /HPF (0-2); SQUAMOUS EPITHELIAL CELL,UR FEW /LPF; UROBILINOGEN,URINE 0.2 mg/dL (0.2 mg/dL); WBC,URINE OCC /HPF (0-4)
[2020-01-16] MEDS ORDERED: POTASSIUM CHLORIDE 20 MEQ TABLET.ER. PO ONE (14:15)
[2020-01-16] MEDS ORDERED: HYDROcodone/APAP 5/325MG 1 TAB TABLET PO ONE (14:15)
[2020-01-16] MEDS ORDERED: ONDA4TAB12 PO (14:18)
[2020-01-16] MEDS ORDERED: HYDR-3165 PO (14:18)
[2020-01-16] MEDS ORDERED: FAMO-63 PO (14:18)
[2020-01-16 14:40] VITALS: BP 133/76
== END 2020-01-16 14:45 | disposition home or self-care (01) ==
LOC: ER 10:39
DX: E87.6 Hypokalemia (principal); R11.2 Nausea with vomiting, unspecified; R93.5 Abnormal findings on diagnostic imaging of other abdominal regions, including retroperitoneum; K21.9 Gastro-esophageal reflux disease without esophagitis; F17.210 Nicotine dependence, cigarettes, uncomplicated; Z87.11 Personal history of peptic ulcer disease; Z90.89 Acquired absence of other organs; Z90.710 Acquired absence of both cervix and uterus
CPT/HCPCS: 36415; 74176; 80053; 81001; 83690; 83735; 85025; 96361; 96374; 96375; 96376; 99285; J1885; J2270; J2405; J3010; J3490; J7030

== ENCOUNTER 2020-06-19 18:48 | Emergency (ER) | payer OTHER ==
[~2020-06-19] VITALS: Ht 162.6 cm; Wt 146.0 kg
[~2020-06-19 18:48] MED LIST changes: +FAMO-63 PO; +ONDA4TAB12 PO
[2020-06-19] MEDS ORDERED: PROCHLORPERAZINE 10 MG/2 ML VIAL. IV ONE (19:15)
[2020-06-19] MEDS ORDERED: DEXAMETHASONE SOD PHOS 4 MG/ML VIAL. IVP ONE (19:15)
[2020-06-19] MEDS ORDERED: MORPHINE SULFATE 2 MG/ML DISP.SYRIN. IV ONE (19:15)
[2020-06-19] MEDS ORDERED: KETOROLAC 15 MG/ML VIAL. IVP ONE (19:15)
[2020-06-19] MEDS ORDERED: diphenhydrAMINE 50 MG/ML VIAL IVP ONE (19:15)
[2020-06-19] MEDS ORDERED: IV RINGERS SOLUTION,LACTATED 1,000 ML IV ONE (19:15)
[2020-06-19] MEDS ORDERED: ONDANSETRON PF 4 MG/2 ML VIAL. IVP ONE (19:15)
--- NOTE | 2020-06-19 19:21 | PHYS DOC ---
Past History Past Medical History: Gallstones, GERD, Migraines, P.U.D Past Surgical History: Hysterectomy Smoking: Cigarettes Alcohol Use: None Drug Use: None Adult General Chief Complaint Chief Complaint: HEADACHE HPI HPI Patient is a 35-year-old female with a past medical history for migraines who presents with a chief complaint of migraine. States that it started about 2 to 3 days ago as her migraines usually do, slow in onset with gradual progression. States that over the last 3 days or so it has increased in pain, 8 out of 10 today, whole head with photophobia, phonophobia, nausea. States she is taken her normal migraine cocktails at home which include Tylenol, ibuprofen and Ecd adryl. States she even tried hydrocodone that she had leftover from her hysterectomy. States that these medications gave minor temporary relief but headache rebounded. Denies any recent trauma, travels, fevers, chest pain, shortness of breath, abdominal pain, dysuria, hematuria or blood in the stool. Denies any alcohol or drug use. Denies any numbness/weakness/tingling. Denies any facial droop or trouble ambulating. States she is making urine and stool normally for her. Review of Systems Review of Systems Review of systems otherwise unremarkable except noted in HPI. Allergies Allergies Allergies Coded Allergies Type Severity Reaction Last Updated Verified No Known Drug Allergies 06/28/14 No Physical Exam Physical Exam Constitutional: Well developed, well nourished, no acute distress, non-toxic appearance. [] HENT: Normocephalic, atraumatic, oropharynx moist, no oral exudates, nose normal. [] Eyes: PERRLA, EOMI, conjunctiva normal, no discharge. [] Neck: Normal range of motion, no tenderness, supple, Cardiovascular:Heart rate regular rhythm, no murmur [] Lungs & Thorax: Bilateral breath sounds clear to auscultation [] Abdomen:soft, no tenderness, no masses, no pulsatile masses. [] Skin: Warm, dry, no erythema, no rash. [] Neurologic: Alert and oriented X 3, normal motor function, normal sensory f unction, cranial nerves intact. No focal deficits noted. Able to ambulate without issue. [] Psychologic: Affect normal, judgement normal, mood normal. [] Current Patient Data Vital Signs Vital Signs Date Time Temp Pulse Resp B/P (MAP) Pulse Ox O2 Delivery O2 Flow Rate FiO2 06/19/20 19:08 97.6 89 18 135/85 (102) 97 Room Air EKG EKG [] Radiology/Procedures Radiology/Procedures [] Heart Score C/O Chest Pain: No Risk Factors: Risk Factors: DM, Current or recent (<one month) smoker, HTN, HLP, family history of CAD, obesity. Risk Scores: Risk Factors: DM, Current or recent (<one month) smoker, HTN, HLP, family history of CAD, obesity. Course & Med Decision Making Course & Med Decision Making Patient is a 35-year-old female who presents with 2 to 3 days of migraine Vital signs not concerning. Physical exam noted above. Patient placed on the monitor with IV access established. Begin IV fluid resuscitation and given migraine cocktail. On reassessment, patient had had some sleep and endorsed resolution of her migraine, photophobia, phonophobia and nausea. Patient was grateful stating she felt much better was ready to be discharged home. Gave pain recommendations/migraine recommendations for home. Advised to call primary care physician in the morning to update and set up a follow-up. Gave return precautions to the ED. Patient very grateful, verbalized understanding and agreed with plan of discharge. [] Dragon Disclaimer Dragon Disclaimer This electronic medical record was generated, in whole or in part, using a voice recognition dictation system. Departure Departure: Impression: Primary Impression: Migraine headache Additional Impression: Nausea & vomiting Disposition: 01 DC HOME SELF CARE/HOMELESS Condition: GOOD Referrals: GINNA CEJA (PCP) Patient Instructions: Migraine Headache Additional Instructions: Please read all of the attached information. As discussed you can continue your Tylenol, ibuprofen and Benadryl at home as needed. Please call your primary care physician as soon as you can to update on ED visit and discuss migraine management at home in greater detail. Please come back to the ED with new or concerning symptoms as discussed. Problem Qualifiers RIDGE NEELY MD Jun 19, 2020 19:21
[2020-06-19 20:36] VITALS: BP 139/90
== END 2020-06-19 20:35 | disposition home or self-care (01) ==
LOC: ER 18:48
DX: G43.909 Migraine, unspecified, not intractable, without status migrainosus (principal); R11.2 Nausea with vomiting, unspecified; K21.9 Gastro-esophageal reflux disease without esophagitis; F17.210 Nicotine dependence, cigarettes, uncomplicated; Z87.11 Personal history of peptic ulcer disease; Z90.710 Acquired absence of both cervix and uterus
CPT/HCPCS: 96361; 96374; 96375; 99285; J0780; J1100; J1200; J1885; J2405; J7120

== ENCOUNTER 2020-12-28 19:08 | Emergency (ER) | payer OTHER ==
[~2020-12-28] VITALS: Ht 162.6 cm; Wt 72.2 kg
[2020-12-28] MEDS ORDERED: KETOROLAC 15 MG/ML VIAL. IVP ONE (19:45)
[2020-12-28] MEDS ORDERED: ONDANSETRON PF 4 MG/2 ML VIAL. IVP ONE (19:45)
--- NOTE | 2020-12-28 19:57 | PHYS DOC ---
Past History Past Medical History: Gallstones, GERD, Migraines, P.U.D (JANET GRUBER) Past Surgical History: Hysterectomy (JANET GRUBER) Smoking: Cigarettes Alcohol Use: None Drug Use: None (JANET GRUBER) General Adult EDM: Chief Complaint: BACK PAIN OR INJURY HPI: HPI: Patient is a 35 year old female who presents with 3-day history of nausea, vomiting, diarrhea and left-sided shoulder/neck pain. Patient states she has had 2 episodes of nonbloody emesis today and 6 episodes of nonbloody diarrhea today. She states that her pain has progressively gone from her neck to her shoulder, and her left upper extremity is numb. She denies any trauma or injury. As of yesterday, she also is experiencing left-sided chest pain that she feels is related to her shoulder pain. Patient becomes tearful on exam stating, "something isn't right." Patient denies fever, chills, headache, vision changes, diaphoresis, palpitations, shortness of breath, cough, dysuria, hematuria. (JANET GRUBER) Review of Systems: Review of Systems: Constitutional: See HPI Eyes: Denies change in visual acuity Respiratory: See HPI Cardiovascular: See HPI GI: See HPI : See HPI Musculoskeletal: See HPI Integument: Denies rash or other skin lesion Neurologic: Denies headache, focal weakness or sensory changes Psychiatric: Denies depression or anxiety (JANET GRUBER) Current Medications: Current Meds: Current Medications Medications (Trade) Dose Ordered Sig/[facility] Start Time Stop Time Status Last Admin Dose Admin Ketorolac Tromethamine (Toradol 15mg Vial) 15 mg 1X ONCE 12/28/20 19:45 12/28/20 19:46 DC Ondansetron HCl (Zofran) 4 mg 1X ONCE 12/28/20 19:45 12/28/20 19:46 DC (JANET GRUBER) Allergies: Allergies: Allergies Coded Allergies Type Severity Reaction Last Updated Verified No Known Drug Allergies 06/28/14 No (JANET GRUBER) Physical Exam: PE: Constitutional: Well developed, well nourished, non-toxic appearance. Patient is tearful during interview. HEENT: Normocephalic, atraumatic, bilateral external ears normal, conjunctiva normal, no eye discharge, oropharynx moist, no oral exudates, nose normal. Neck: Swelling noted to the left trapezius region with palpable muscle spasm and tenderness. Normal range of motion, no stridor. Cardiovascular: Heart rate regular rhythm, no murmur. Lungs & Thorax: Bilateral breath sounds clear to auscultation. Skin: Warm, dry, no erythema, no rash. Extremities: Extremities x4 no tenderness, no cyanosis, no clubbing, ROM intact, no edema. Positive Tinel's sign, positive Phalen's maneuver. Neurologic: Alert and oriented x3, normal motor function, normal sensory function, no focal deficits noted. (JANET GRUBER) EKG: EKG: EKG Interpreted by Dr. Parekh: Regular rate 78 bpm and rhythm with no ectopic beats. No concerning ST-T wave changes. Regular QR interval. (JANET GRUBER) Radiology/Procedures: Radiology/Procedures: [] (JANET GRUBER) Heart Score: C/O Chest Pain: Yes HEART Score for Chest Pain: HEART Score for Chest Pain Response (Comments) Value History Slighlty/Non-Suspicious 0 ECG Normal 0 Age < 45 0 Risk Factors 1 or 2 Risk Factors 1 Troponin < Normal Limit 0 Total 1 Risk Factors: Risk Factors: Current smoker Risk Scores: Score 0 - 3: 2.5% MACE over next 6 weeks - Discharge Home Score 4 - 6: 20.3% MACE over next 6 weeks - Admit for Clinical Observation Score 7 - 10: 72.7% MACE over next 6 weeks - Early Invasive Strategies (JANET GRUBER) Course & Med Decision Making: Course & Med Decision Making Pertinent Labs and Imaging studies reviewed. (See chart for details) Work-up today will include EKG and troponin to assess patient's chest pain complaints, as well as blood work given multiday history of emesis and diarrhea. On reevaluation, patient continues to be tearful and is obviously anxious. She will be provided to Ativan IV. Work-up is unremarkable. Goal will be to control patient's pain and anxiety prior to discharge. (JANET GRUBER) Dragon Disclaimer: Dragon Disclaimer: This electronic medical record was generated, in whole or in part, using a voice recognition dictation system. (JANET GRUBER) Departure Departure: Impression: Primary Impression: Left upper arm pain Additional Impression: Neck pain on left side Disposition: HOME / SELF CARE / HOMELESS Condition: STABLE Referrals: GINNA CEJA (PCP) Patient Instructions: Muscle Strain, [id number] Additional Instructions: Your work-up today included looking for any cardiac etiology to your chest discomfort, which all came back negative. The current pain you are experiencing is likely due to a muscle spasm. Will be provided with a prescription for a muscle relaxer, which you can combine with [id number] ibuprofen. You may contact [facility] orthopedic department at [phone] to schedule an appointment for further evaluation of your pain. They can provide you with soft tissue imaging, which cannot be provided here in the emergency department. Scripts Orphenadrine Citrate (ORPHENADRINE CITRATE) 100 Mg Tablet.er 100 MG PO BID for muscle spasm for 7 Days, #14 TAB.SR Take 1 tablet by mouth twice a day. Prov: JANET GRUBER 12/28/20 Attending Signature Attending Signature I have participated in the care of this patient and I have reviewed and agree with all pertinent clinical information above including history, exam, and recommendations. (MAGGIE PAREKH MD) JANET GRUBER Dec 28, 2020 19:57 MAGGIE PAREKH MD Jan 01, 2021 00:24
[2020-12-28] MEDS ORDERED: IV RINGERS SOLUTION,LACTATED 500 ML IV ONE (20:00)
[2020-12-28 20:27] LABS: BASO # 0.1 x10^3/uL (0.0-0.2); BASO % 1 % (0-3); EOS # 0.1 x10^3/uL (0.0-0.7); EOS % 1 % (0-3); HEMATOCRIT 42.1 % (36.0-47.0); HEMOGLOBIN 14.1 g/dL (12.0-15.5); LYMPH # 2.6 x10^3/uL (1.0-4.8); LYMPH % 27 % (24-48); MEAN CORPUSCULAR HEMOGLOBIN 30 pg (25-35); MEAN CORPUSCULAR HGB CONC 34 g/dL (31-37); MEAN CORPUSCULAR VOLUME 89 fL (79-100); MONO # 0.6 x10^3/uL (0.0-1.1); MONO % 6 % (0-9); NEUT # 6.1 x10^3uL (1.8-7.7); NEUT % 65 % (31-73); PLATELET COUNT 217 x10^3/uL (140-400); RED BLOOD COUNT 4.72 x10^6/uL (3.50-5.40); RED CELL DISTRIBUTION WIDTH 12.9 % (11.5-14.5); WHITE BLOOD COUNT 9.5 x10^3/uL (4.0-11.0)
[2020-12-28 20:38] LABS: CREATININE 0.7 mg/dL (0.6-1.0); GFR 95.8; POTASSIUM 3.8 mmol/L (3.5-5.1)
[2020-12-28] MEDS ORDERED: ORPH-16 PO (21:17)
[2020-12-28 21:22] VITALS: BP 151/101
[2020-12-28] MEDS ORDERED: ORPHENADRINE CITRATE 60 MG/2 ML VIAL. IM ONE (22:00)
--- NOTE | 2020-12-29 08:59 | EKG ---
[address] [address] Test Date: 2020-12-28 Test Time: 20:15:28 Pat Name: ANTHONY SHAH Department: Room: Gender: F [employer] Poster: : [id number] Requested By: JANET GRUBER Order Number: [id number] Reading MD: Measurements Intervals [place] Rate: 78 P: -19 SD: 126 QRS: 40 QRSD: 88 T: 24 QT: 378 QTc: 434 Interpretive Statements SINUS RHYTHM NORMAL ECG RI6.02 No previous ECG available for comparison
== END 2020-12-28 21:48 | disposition home or self-care (01) ==
LOC: ER 19:08
DX: M79.622 Pain in left upper arm (principal); M54.2 Cervicalgia; M25.512 Pain in left shoulder; R11.2 Nausea with vomiting, unspecified; R19.7 Diarrhea, unspecified; R07.89 Other chest pain; K21.9 Gastro-esophageal reflux disease without esophagitis; F17.210 Nicotine dependence, cigarettes, uncomplicated; G43.909 Migraine, unspecified, not intractable, without status migrainosus; Z87.11 Personal history of peptic ulcer disease
CPT/HCPCS: 36415; 80048; 84484; 85025; 93005; 96361; 96372; 96374; 96375; 99284; J1885; J2060; J2360; J2405; J7120